=== PATIENT | female | born 1945 | race Caucasian/White ===

== ENCOUNTER 2021-04-25 04:21 | Day surgery (SDC) | payer OTHER, MEDICARE ==
[2021-04-20 16:38] VITALS: BMI 28.3
[2021-04-25] MEDS ORDERED: BACITRACIN 15 GM TUBE TOPICAL OINTMENT ONE (07:16)
[2021-04-25] MEDS ORDERED: THROMBIN (BOVINE) 5,000 UNIT VIAL TP ONE ×2 (07:16→08:39)
[2021-04-25] MEDS ORDERED: methylPREDNISolone ACET (DEPO) 80 MG/1 ML VIAL ONE (07:16)
[2021-04-25] MEDS ORDERED: BUPIVACAINE HCL/PF 0.5% (5MG/ML) 10 ML VIAL ONE (07:17)
[2021-04-25] MEDS ORDERED: ROCURONIUM BROMIDE 50 MG/5 ML SYRINGE ONE ×2 (07:22→09:08)
[2021-04-25] MEDS ORDERED: SUCCINYLCHOLINE CHLORIDE 200 MG/10 ML SYRINGE ONE (07:22)
[2021-04-25] MEDS ORDERED: PROPOFOL 20 ML ONE ×3 (07:22→09:52)
[2021-04-25] MEDS ORDERED: ACETAMINOPHEN INJECTION 100 ML IVPB ONE (07:26)
[2021-04-25] MEDS ORDERED: DEXMEDETOMIDINE HCL 200 MCG/2 ML IVPB ONE (07:26)
[2021-04-25] MEDS ORDERED: VANCOMYCIN 1,000 MG VIAL (RESTRICTED TO ID ONLY) ONE (07:51)
[2021-04-25] MEDS ORDERED: ceFAZolin SODIUM 1 GM VIAL IVPB ONE (08:15)
[2021-04-25] MEDS ORDERED: KETAMINE HCL 200 MG/20 ML VIAL ONE (08:21)
[2021-04-25] MEDS ORDERED: VANCOMYCIN 1,000 MG VIAL (RESTRICTED TO ID ONLY) IVPB ONE (08:39)
[2021-04-25] MEDS ORDERED: GELATIN SPONGE,ABSORBABLE 1 GM PACKET TP ONE (08:39)
[2021-04-25] MEDS ORDERED: HYDROmorphone HCl 2 MG/ML VIAL ONE (08:51)
[2021-04-25] MEDS ORDERED: BACITRACIN 15 GM TUBE TOPICAL OINTMENT TP ONE (09:46)
[2021-04-25] MEDS ORDERED: NEOSTIGMINE METHYLSULFATE 0.5 MG/1 ML - 10 ML MDV ONE (10:02)
[2021-04-25] MEDS ORDERED: oxyCODONE HCL 5 MG TABLET PO PRN (10:09)
[2021-04-25] MEDS ORDERED: ONDANSETRON 4 MG/2 ML VIAL IVPUSH PRN (10:09)
[2021-04-25] MEDS ORDERED: LACTATED RINGERS SOLUTION 1,000 ML IV SCH (10:30)
[2021-04-25] MEDS ORDERED: ceFAZolin SODIUM 1 GM VIAL ONE (15:46)
[2021-04-25] MEDS: D5-1/2NS+20 MEQ KCL - 20 MEQ/1,000 ML INFUS.BAG IV SCH ×2 (16:05→17:43)
[2021-04-25] MEDS: CEFAZOLIN 1 GM in DEXTROSE 5%-WATER - 50 ML IVPB SCH (17:18)
[2021-04-25] MEDS: HYDROmorphone HCl 2 MG/ML VIAL IVPB PRN (21:32)
[2021-04-25] MEDS: diazePAM 5 MG TABLET PO SCH (21:32)
[2021-04-26] MEDS ORDERED: DEXTROSE 5%-WATER - 50 ML IVPB ONE (01:14)
[2021-04-26] MEDS ORDERED: ceFAZolin SODIUM 1 GM VIAL ONE (01:14)
[2021-04-26] MEDS: CEFAZOLIN 1 GM in DEXTROSE 5%-WATER - 50 ML IVPB SCH (01:18)
[2021-04-26] MEDS: D5-1/2NS+20 MEQ KCL - 20 MEQ/1,000 ML INFUS.BAG IV SCH (04:26)
[2021-04-26] MEDS: HYDROmorphone HCl 2 MG/ML VIAL IVPB PRN ×2 (04:52→11:11)
[2021-04-26] MEDS: diazePAM 5 MG TABLET PO SCH (06:13)
[2021-04-26] MEDS ORDERED: LEVOTHYROXINE NA 50 MCG TABLET (FP) PO SCH (07:00)
[2021-04-26] MEDS ORDERED: ATORVASTATIN CA 10 MG TABLET (FP) PO SCH (10:00)
[2021-04-26] MEDS ORDERED: [UNRECOGNIZED DRUG - OTHER] PO SCH ×2 (10:00→12:00)
[2021-04-26 13:53] VITALS: BP 107/55; PULSE 60; TEMP 99.2
== END 2021-04-26 16:02 | disposition home or self-care (01) ==
LOC: JASUSAT 04:21 → UNDOADMIN 04:21 → J2C 04:21 → EDSTATUS 08:00 → J2C 16:19 → J6S 16:19 → JASUSAT 04-26 16:02
PROVIDERS: ATTEND Neurological Surgery
PROC: 01NB0ZZ Release Lumbar Nerve, Open Approach (ICD-10-PCS; principal; 2021-04-25 08:00)
DX: M48.061 Spinal stenosis, lumbar region without neurogenic claudication (principal); M54.16 Radiculopathy, lumbar region
CPT/HCPCS: 71046-TC-FY; 72100-TC-FY; 76000-TC-FY; 86850; 86900; 86901; 93005; 94010; 94760; 97116-GP; 97162-GP